=== PATIENT | male | born 1995 ===

== ENCOUNTER 2021-02-09 02:15 | Emergency (ER) | payer SELFPAY ==
[2021-02-09 02:41] VITALS: BP 121/63
== END 2021-02-09 05:16 | disposition left against medical advice (07) ==
LOC: ED 02:15
DX: S01.501A Unspecified open wound of lip, initial encounter (principal); Z53.21 Procedure and treatment not carried out due to patient leaving prior to being seen by health care provider; X58.XXXA Exposure to other specified factors, initial encounter; Y93.89 Activity, other specified; Y92.89 Other specified places as the place of occurrence of the external cause; Y99.8 Other external cause status